=== PATIENT | male | born 1940 | race Caucasian/White ===

== ENCOUNTER 2018-09-21 23:33 | Observation (INO) ==
[2018-09-22] MEDS ORDERED: KETOROLAC 30 MG/1 ML VIAL IV STA (00:15)
[2018-09-22] MEDS ORDERED: PANTOPRAZOLE 40 MG VIAL IV STA (00:15)
[2018-09-22 00:24] LABS: Basophils % 0.5 % (0.0-0.8); Eosinophils # 0.1 10*3/uL (0.0-0.87); Eosinophils % 2.3 % (0.00-10.9); Hematocrit 36.9 VOL% (42.0-52.0); Immature Granulocytes % 0.2 %; Immature Granulocytes Absolute 0.01 #; Lymphocytes # 1.6 10*3/uL (1.4-4.0); Lymphocytes % 35.4 % (21.2-54.2); Mean Corpuscular HGB Conc 32.5 GM/DL (32-36); Mean Corpuscular Hemoglobin 30 PG (27-34); Mean Corpuscular Volume 91.1 FL (87-102); Mean Platelet Volume 9.6 FL (9.6-12.0); Monocytes # 0.4 10*3/uL (0.11-0.8); Monocytes % 8.2 % (1.7-12.7); Neutrophils # 2.3 10*3/uL (1.4-7.4); Neutrophils % 53.4 % (38.7-73.9); Platelet Count 128 T/CUMM (130-400); Red Blood Count 4.05 MC/CUMM (3.8-5.5); Red Cell Distribution Width 12.5 % (9.3-17.3); White Blood Count 4.4 T/CUMM (4-12)
[2018-09-22 00:34] LABS: Albumin 3.6 G/DL (3.4-5.0); Bilirubin,Total 0.5 MG/DL (0.2-1.0); Calcium 8.7 MG/DL (8.5-10.1); Osmolality,Calculated 280.4 MOS/KG (273-304); Potassium 3.9 MMOL/L (3.5-5.1)
[2018-09-22] MEDS ORDERED: MELOXICAM 7.5 MG TABLET PO PRN (10:13)
[2018-09-22] MEDS: amLODIPine 5 MG TABLET PO SCH (11:16)
[2018-09-22] MEDS: LOSARTAN 50 MG TABLET PO SCH (11:16)
[2018-09-22] MEDS: ENOXAPARIN 40 MG/0.4 ML SYRINGE SUBCUT SCH (11:16)
[2018-09-22] MEDS: ASPIRIN EC 81 MG TABLET PO SCH (11:16)
[2018-09-22] MEDS ORDERED: ALBUTEROL/IPRATROPIUM 3 ML NEB RESP TX PRN (13:00)
[2018-09-22] MEDS: TAMSULOSIN 0.4 MG CAPSULE PO SCH (20:28)
[2018-09-22] MEDS: ACETAMINOPHEN 500 MG TABLET PO SCH (20:29)
[2018-09-22] MEDS: OMEGA 3 ACID ETHYL ESTERS 1 GM CAPSULE PO SCH (20:29)
[2018-09-23 04:31] LABS: Basophils % 0.4 % (0.0-0.8); Eosinophils # 0.1 10*3/uL (0.0-0.87); Eosinophils % 2.5 % (0.00-10.9); Hematocrit 36.8 VOL% (42.0-52.0); Hemoglobin 11.9 GM/DL (14.0-18.0); Immature Granulocytes % 0.2 %; Immature Granulocytes Absolute 0.01 #; Lymphocytes # 1.6 10*3/uL (1.4-4.0); Mean Corpuscular HGB Conc 32.3 GM/DL (32-36); Mean Corpuscular Hemoglobin 30 PG (27-34); Mean Corpuscular Volume 91.1 FL (87-102); Mean Platelet Volume 9.6 FL (9.6-12.0); Monocytes # 0.4 10*3/uL (0.11-0.8); Monocytes % 7.8 % (1.7-12.7); Neutrophils # 2.7 10*3/uL (1.4-7.4); Neutrophils % 56.1 % (38.7-73.9); Platelet Count 139 T/CUMM (130-400); Red Blood Count 4.04 MC/CUMM (3.8-5.5); Red Cell Distribution Width 12.2 % (9.3-17.3); White Blood Count 4.9 T/CUMM (4-12)
[2018-09-23 04:57] LABS: Calcium 8.6 MG/DL (8.5-10.1); Osmolality,Calculated 286.1 MOS/KG (273-304); Potassium 4.1 MMOL/L (3.5-5.1)
[2018-09-23] MEDS ORDERED: PANTOPRAZOLE 40 MG TABLET PO SCH (09:00)
[2018-09-23] MEDS: ACETAMINOPHEN 500 MG TABLET PO SCH ×2 (14:05→21:50)
[2018-09-23] MEDS: POLYETHYLENE GLYCOL POWDER 17 GM PACK PO SCH (14:05)
[2018-09-23] MEDS: DOCUSATE SODIUM 100 MG CAPSULE PO SCH (14:05)
[2018-09-23] MEDS: OMEGA 3 ACID ETHYL ESTERS 1 GM CAPSULE PO SCH ×2 (14:05→21:45)
[2018-09-23] MEDS: amLODIPine 5 MG TABLET PO SCH (14:07)
[2018-09-23] MEDS: LOSARTAN 50 MG TABLET PO SCH (14:09)
[2018-09-23] MEDS: PANTOPRAZOLE 40 MG TABLET PO SCH ×2 (14:10→21:45)
[2018-09-23] MEDS: ASPIRIN EC 81 MG TABLET PO SCH (14:10)
[2018-09-23] MEDS: SIMVASTATIN 10 MG TABLET PO SCH (14:10)
[2018-09-23] MEDS: ENOXAPARIN 40 MG/0.4 ML SYRINGE SUBCUT SCH (14:11)
[2018-09-23] MEDS: LACTULOSE 20 GM/30 ML UDCUP PO SCH (14:14)
[2018-09-23] MEDS ORDERED: LOSARTAN 25 MG TABLET PO SCH (14:44)
[2018-09-23] MEDS ORDERED: FAMOTIDINE 20 MG TABLET PO SCH (21:00)
[2018-09-23] MEDS: TAMSULOSIN 0.4 MG CAPSULE PO SCH (21:45)
[2018-09-24] MEDS ORDERED: LIDOCAINE 2% 5 ML VIAL ONE (09:00)
[2018-09-24] MEDS ORDERED: PROPOFOL 200 MG/20 ML VIAL IV ONE (09:00)
[2018-09-24] MEDS ORDERED: SODIUM CHLORIDE 0.9% 1,000 ML IV SCH (12:00)
[2018-09-24] MEDS: PANTOPRAZOLE 40 MG TABLET PO SCH (15:05)
[2018-09-24] MEDS: ACETAMINOPHEN 500 MG TABLET PO SCH (15:06)
[2018-09-24] MEDS: amLODIPine 5 MG TABLET PO SCH (15:07)
[2018-09-24] MEDS: OMEGA 3 ACID ETHYL ESTERS 1 GM CAPSULE PO SCH (15:08)
[2018-09-24] MEDS: DOCUSATE SODIUM 100 MG CAPSULE PO SCH (15:08)
[2018-09-24] MEDS: SIMVASTATIN 10 MG TABLET PO SCH (15:08)
[2018-09-24] MEDS: ASPIRIN EC 81 MG TABLET PO SCH (15:08)
[2018-09-24] MEDS: LACTULOSE 20 GM/30 ML UDCUP PO SCH (15:08)
[2018-09-24] MEDS: POLYETHYLENE GLYCOL POWDER 17 GM PACK PO SCH (15:09)
[2018-09-24 16:08] VITALS: BP 141/53
== END 2018-09-24 16:25 | disposition home or self-care (01) ==
LOC: EDBD → EDUNIT# → N.EDINP 23:33 → N.ED 23:33 → N.TELEN 09-22 02:24
PROVIDERS: ADMIT Family Medicine; ATTEND Family Medicine

== ENCOUNTER 2018-09-30 23:51 | Inpatient (IN) ==
[2018-10-01] MEDS ORDERED: ASPIRIN 325 MG TABLET PO STA (01:39)
[2018-10-01 02:30] LABS: Basophils % 0.2 % (0.0-0.8); Eosinophils % 0.1 % (0.00-10.9); Hematocrit 41.8 VOL% (42.0-52.0); Hemoglobin 13.6 GM/DL (14.0-18.0); Immature Granulocytes % 0.3 %; Immature Granulocytes Absolute 0.03 #; Lymphocytes # 0.8 10*3/uL (1.4-4.0); Lymphocytes % 7.2 % (21.2-54.2); Mean Corpuscular HGB Conc 32.5 GM/DL (32-36); Mean Corpuscular Hemoglobin 30 PG (27-34); Mean Corpuscular Volume 91.7 FL (87-102); Mean Platelet Volume 9.6 FL (9.6-12.0); Monocytes # 0.3 10*3/uL (0.11-0.8); Monocytes % 3.1 % (1.7-12.7); Neutrophils # 9.7 10*3/uL (1.4-7.4); Neutrophils % 89.1 % (38.7-73.9); Platelet Count 164 T/CUMM (130-400); Red Blood Count 4.56 MC/CUMM (3.8-5.5); Red Cell Distribution Width 12.5 % (9.3-17.3); White Blood Count 10.9 T/CUMM (4-12)
[2018-10-01 02:47] LABS: Albumin 4.5 G/DL (3.4-5.0); Bilirubin,Total 0.6 MG/DL (0.2-1.0); Calcium 9.5 MG/DL (8.5-10.1); Osmolality,Calculated 281.5 MOS/KG (273-304); Potassium 4.2 MMOL/L (3.5-5.1); Total Protein 8.3 G/DL (6.4-8.3)
[2018-10-01] MEDS ORDERED: MORPHINE 4 MG/1 ML VIAL IV STA (03:41)
[2018-10-01] MEDS ORDERED: ONDANSETRON 4 MG/2 ML VIAL IV STA (03:41)
[2018-10-01] MEDS: DEXTROSE 5% LACTATED RINGERS 1,000 ML IV SCH ×2 (07:03→20:00)
[2018-10-01] MEDS ORDERED: LOSARTAN 50 MG TABLET PO SCH (09:00)
[2018-10-01] MEDS ORDERED: cloNIDine 0.1 MG/24 HR PATCH TRANSDERM SCH (09:00)
[2018-10-01] MEDS: PANTOPRAZOLE 40 MG VIAL IV SCH (09:20)
[2018-10-01] MEDS ORDERED: MORPHINE 4 MG/1 ML VIAL IV PRN (11:41)
[2018-10-01] MEDS: ONDANSETRON 4 MG/2 ML VIAL IV PRN (11:53)
[2018-10-01] MEDS: MORPHINE 4 MG/1 ML VIAL IV PRN (11:54)
[2018-10-01] MEDS ORDERED: cefOXitin 2,000 MG in SYRINGE 1 EACH IV ONE (13:00)
[2018-10-01 15:17] LABS: Amorphous Crystals,Urine Occasional /HPF (Few); Apearance,Urine CLOUDY (Clear); Bilirubin,Urine Negative (Negative); Blood, Urine Negative (Negative); Glucose,Urine (UA) Negative (Negative); Ketones,Urine Negative (Negative); Mucus,Urine Occasional /LPF (Occasional); Nitrite,Urine Negative (Negative); Protein,Urine Negative; RBC,Urine 3 /HPF (0-4); Urine Color Yellow (Yellow); Urine Specific Gravity 1.033 (1.001-1.035); Urine Urobilinogen < 2.0 EU/DL (0.2-1.0)
[2018-10-01] MEDS ORDERED: EPINEPHrine 1 MG/ML VIAL ONE (16:40)
[2018-10-01] MEDS ORDERED: ONDANSETRON 4 MG/2 ML VIAL ONE (19:11)
[2018-10-01] MEDS ORDERED: HYDROmorphone 2 MG/1 ML VIAL ONE (19:11)
[2018-10-01] MEDS ORDERED: NEOSTIGMINE 10 MG/10 ML VIAL ONE (19:13)
[2018-10-01] MEDS ORDERED: SUCCINYLCHOLINE 200 MG/10 ML VIAL ONE (19:13)
[2018-10-01] MEDS ORDERED: LACTATED RINGERS 2,000 ML IV ONE (19:13)
[2018-10-01] MEDS ORDERED: HYDROmorphone 2 MG/1 ML VIAL IV PRN (19:13)
[2018-10-01] MEDS ORDERED: GLYCOPYRROLATE 0.4 MG/2 ML VIAL ONE (19:13)
[2018-10-01] MEDS ORDERED: ROCURONIUM 100 MG/10 ML VIAL IV ONE (19:13)
[2018-10-01] MEDS ORDERED: fentaNYL 100 MCG/2 ML VIAL ONE (19:13)
[2018-10-01] MEDS ORDERED: ETOMIDATE 40 MG/20 ML VIAL IV ONE (19:13)
[2018-10-01] MEDS ORDERED: SEVOFLURANE 1 UNIT/15 MINUTE INH ONE (19:13)
[2018-10-01] MEDS ORDERED: ONDANSETRON 4 MG/2 ML VIAL IV PRN (19:13)
[2018-10-01] MEDS ORDERED: PHENYLEPHRINE 1 MG/10 ML SYRINGE IV ONE (19:13)
[2018-10-01 19:36] LABS: ABG HCO3 22.9 MMOL/L (20-26); ABG Oxygen Saturation 92.4 % (95-100); ABG PH 7.287 (7.35-7.45); ABG PO2 74.9 MM HG (80-95); ABG TCO2 24.4 MMOL/L (23-27)
[2018-10-01] MEDS ORDERED: PHENYLEPHRINE DRIP 40 MG/250 ML PREMIX IV ONE (19:43)
[2018-10-01] MEDS: PHENYLEPHRINE DRIP 40 MG/250 ML PREMIX IV PRN (19:45)
[2018-10-01] MEDS ORDERED: PROPOFOL 1,000 MG/100 ML BOTTLE IV ONE (20:20)
[2018-10-01] MEDS: PROPOFOL 1,000 MG/100 ML BOTTLE IV SCH (20:30)
[2018-10-01 21:29] LABS: ABG Base Excess -4.7 MMOL/L (-2.5-2.5); ABG HCO3 22.2 MMOL/L (20-26); ABG Oxygen Saturation 99.4 % (95-100); ABG PCO2 47.9 MM HG (35-48); ABG PH 7.283 (7.35-7.45); ABG PO2 348.8 MM HG (80-95); ABG TCO2 23.6 MMOL/L (23-27)
[2018-10-02] MEDS: PHENYLEPHRINE DRIP 40 MG/250 ML PREMIX IV PRN ×3 (00:12→08:05)
[2018-10-02] MEDS: DEXTROSE 5% LACTATED RINGERS 1,000 ML IV SCH ×5 (01:53→23:01)
[2018-10-02] MEDS ORDERED: SODIUM CHLORIDE 0.9% 1,000 ML IV ONE ×2 (01:55→03:19)
[2018-10-02] MEDS ORDERED: ALBUMIN 25% 25 GM in PREMIX 1 EACH IV ONE (03:14)
[2018-10-02] MEDS ORDERED: LACTATED RINGERS 1,000 ML IV SCH (03:30)
[2018-10-02 04:03] LABS: ABG Base Excess -8.1 MMOL/L (-2.5-2.5); ABG HCO3 17.9 MMOL/L (20-26); ABG Oxygen Saturation 99.5 % (95-100); ABG PCO2 39.2 MM HG (35-48); ABG PH 7.276 (7.35-7.45); ABG TCO2 16.5 MMOL/L (23-27)
[2018-10-02 04:11] LABS: Basophils % 0.1 % (0.0-0.8); Eosinophils % 0.1 % (0.00-10.9); Hematocrit 34.6 VOL% (42.0-52.0); Hemoglobin 10.8 GM/DL (14.0-18.0); Immature Granulocytes % 0.4 %; Immature Granulocytes Absolute 0.03 #; Lymphocytes # 0.6 10*3/uL (1.4-4.0); Lymphocytes % 8.3 % (21.2-54.2); Mean Corpuscular HGB Conc 31.2 GM/DL (32-36); Mean Corpuscular Hemoglobin 30 PG (27-34); Mean Corpuscular Volume 95.1 FL (87-102); Mean Platelet Volume 10.1 FL (9.6-12.0); Monocytes # 0.6 10*3/uL (0.11-0.8); Monocytes % 8.3 % (1.7-12.7); Neutrophils # 5.8 10*3/uL (1.4-7.4); Neutrophils % 82.8 % (38.7-73.9); Platelet Count 211 T/CUMM (130-400); Red Blood Count 3.64 MC/CUMM (3.8-5.5); Red Cell Distribution Width 12.8 % (9.3-17.3)
[2018-10-02 04:21] LABS: Calcium 7.7 MG/DL (8.5-10.1); Osmolality,Calculated 286.3 MOS/KG (273-304); Potassium 3.5 MMOL/L (3.5-5.1)
[2018-10-02 04:44] LABS: Band Neutrophils 16 % (0-10); Lymphocytes 13 % (20-55); Metamyelocytes 10 %; Myelocytes 1 %; Segmented Neutrophils 53 % (50-85)
[2018-10-02 05:24] LABS: Platelet Estimate Normal
[2018-10-02 05:25] LABS: Total Cells Counted 100
[2018-10-02] MEDS: PROPOFOL 1,000 MG/100 ML BOTTLE IV SCH ×5 (05:51→23:44)
[2018-10-02] MEDS ORDERED: cefOXitin 1,000 MG in SODIUM CHLORIDE 0.9% 100 ML IV ONE (06:30)
[2018-10-02] MEDS ORDERED: cefOXitin 1,000 MG in SYRINGE 1 EACH IV ONE (07:30)
[2018-10-02 08:07] LABS: CKMB % 1.4 %; Troponin I 0.552 NG/ML (0.00-0.045)
[2018-10-02] MEDS: PANTOPRAZOLE 40 MG VIAL IV SCH (08:50)
[2018-10-02] MEDS: PHENYLEPHRINE INJ 80 MG in SODIUM CHLORIDE 0.9% 242 ML IV PRN ×2 (10:20→16:00)
[2018-10-02 12:01] LABS: Hematocrit 31.2 VOL% (42.0-52.0); Hemoglobin 9.9 GM/DL (14.0-18.0)
[2018-10-02] MEDS ORDERED: LACTATED RINGERS 1,000 ML IV ONE (12:30)
[2018-10-02] MEDS ORDERED: METOPROLOL TARTRATE 5 MG/5 ML VIAL IV ONE ×2 (12:42→12:44)
[2018-10-02] MEDS ORDERED: ASPIRIN 300 MG SUPP RECTAL ONE (12:43)
[2018-10-02] MEDS ORDERED: NOREPINEPHRINE 4 MG/4 ML VIAL IV ONE (12:55)
[2018-10-02] MEDS: NOREPINEPHRINE 16 MG in SODIUM CHLORIDE 0.9% 234 ML IV PRN (13:00)
[2018-10-02] MEDS: ALBUTEROL/IPRATROPIUM 3 ML NEB RESP TX SCH ×3 (13:02→19:50)
[2018-10-02] MEDS ORDERED: SODIUM CHLORIDE 0.9% 500 ML IV ONE ×2 (17:27→22:00)
[2018-10-02] MEDS ORDERED: DIGOXIN 0.5 MG/2 ML AMP IV ONE (19:10)
[2018-10-02] MEDS ORDERED: ACETAMINOPHEN 325 MG SUPP RECTAL PRN ×2 (19:51→19:55)
[2018-10-02] MEDS ORDERED: AMIODARONE 450 MG/9 ML VIAL IV ONE (20:06)
[2018-10-02] MEDS ORDERED: AMIODARONE 150 MG/3 ML VIAL ONE (20:06)
[2018-10-02] MEDS ORDERED: AMIODARONE INJ 150 MG in DEXTROSE 5% 100 ML IV ONE (20:08)
[2018-10-02] MEDS ORDERED: AMIODARONE INJ 450 MG in DEXTROSE 5% 241 ML IV SCH (20:30)
[2018-10-03] MEDS: ALBUTEROL/IPRATROPIUM 3 ML NEB RESP TX SCH ×4 (01:29→19:00)
[2018-10-03] MEDS: PROPOFOL 1,000 MG/100 ML BOTTLE IV SCH ×3 (02:53→20:33)
[2018-10-03] MEDS ORDERED: AMIODARONE 450 MG/9 ML VIAL IV ONE (03:19)
[2018-10-03] MEDS: AMIODARONE INJ 450 MG in DEXTROSE 5% 241 ML IV SCH ×2 (03:31→18:40)
[2018-10-03] MEDS: PHENYLEPHRINE INJ 80 MG in SODIUM CHLORIDE 0.9% 242 ML IV PRN (03:34)
[2018-10-03 03:50] LABS: Basophils # 0.1 10*3/uL (0.0-0.2); Basophils % 0.4 % (0.0-0.8); Hematocrit 32.1 VOL% (42.0-52.0); Hemoglobin 9.9 GM/DL (14.0-18.0); Immature Granulocytes % 5.6 %; Immature Granulocytes Absolute 1.27 #; Lymphocytes # 1.6 10*3/uL (1.4-4.0); Lymphocytes % 6.9 % (21.2-54.2); Mean Corpuscular HGB Conc 30.8 GM/DL (32-36); Mean Corpuscular Hemoglobin 30 PG (27-34); Mean Corpuscular Volume 96.1 FL (87-102); Mean Platelet Volume 10.7 FL (9.6-12.0); Monocytes # 1.8 10*3/uL (0.11-0.8); Monocytes % 7.8 % (1.7-12.7); Neutrophils % 79.3 % (38.7-73.9); Platelet Count 144 T/CUMM (130-400); Red Blood Count 3.34 MC/CUMM (3.8-5.5); Red Cell Distribution Width 13.3 % (9.3-17.3); White Blood Count 22.7 T/CUMM (4-12)
[2018-10-03 04:05] LABS: Calcium 7.1 MG/DL (8.5-10.1); Osmolality,Calculated 287.5 MOS/KG (273-304); Potassium 5.3 MMOL/L (3.5-5.1)
[2018-10-03 04:51] LABS: Band Neutrophils 37 % (0-10); Lymphocytes 30 % (20-55); Metamyelocytes 2 %; Platelet Estimate Adequate; Polychromasia Few; Segmented Neutrophils 26 % (50-85); Total Cells Counted 100
[2018-10-03] MEDS: DEXTROSE 5% LACTATED RINGERS 1,000 ML IV SCH ×2 (06:40→10:00)
[2018-10-03 06:52] LABS: ABG Base Excess -8.5 MMOL/L (-2.5-2.5); ABG HCO3 17.6 MMOL/L (20-26); ABG Oxygen Saturation 99.3 % (95-100); ABG PH 7.315 (7.35-7.45); ABG TCO2 15.3 MMOL/L (23-27); Allen Test Positive; Pt O2 Delivery Device Ventilator
[2018-10-03] MEDS: MEROPENEM 1,000 MG in SODIUM CHLORIDE 0.9% 100 ML IV SCH ×2 (08:10→20:33)
[2018-10-03] MEDS: HYDROCORTISONE 100 MG VIAL IV SCH ×2 (09:25→17:30)
[2018-10-03] MEDS: PANTOPRAZOLE 40 MG VIAL IV SCH (09:25)
[2018-10-03] MEDS: ASPIRIN 300 MG SUPP RECTAL SCH (09:45)
[2018-10-03] MEDS: DEXTROSE 5% NACL 0.9% 1,000 ML IV SCH ×2 (12:10→20:32)
[2018-10-03] MEDS: ONDANSETRON 4 MG/2 ML VIAL IV PRN (13:20)
[2018-10-03] MEDS ORDERED: SODIUM HYPOCHLORITE 0.25% IRRIG 473 ML BOTTLE ONE (15:06)
[2018-10-03] MEDS: SODIUM HYPOCHLORITE 0.25% IRRIG 473 ML BOTTLE TOP SCH (15:30)
[2018-10-03] MEDS: CHLORHEXIDINE 4% SOLN 118 ML BOTTLE TOP SCH (15:30)
[2018-10-03] MEDS: NOREPINEPHRINE 16 MG in SODIUM CHLORIDE 0.9% 234 ML IV PRN (20:34)
[2018-10-04] MEDS: ALBUTEROL/IPRATROPIUM 3 ML NEB RESP TX SCH ×4 (01:15→19:52)
[2018-10-04] MEDS: HYDROCORTISONE 100 MG VIAL IV SCH ×3 (01:54→16:45)
[2018-10-04 04:25] LABS: Hematocrit 30.8 VOL% (42.0-52.0); Hemoglobin 9.6 GM/DL (14.0-18.0); Immature Granulocytes % 1.3 %; Immature Granulocytes Absolute 0.34 #; Lymphocytes # 0.6 10*3/uL (1.4-4.0); Lymphocytes % 2.1 % (21.2-54.2); Mean Corpuscular HGB Conc 31.2 GM/DL (32-36); Mean Corpuscular Hemoglobin 30 PG (27-34); Mean Corpuscular Volume 96.6 FL (87-102); Monocytes # 1.2 10*3/uL (0.11-0.8); Monocytes % 4.5 % (1.7-12.7); Neutrophils % 92.1 % (38.7-73.9); Platelet Count 96 T/CUMM (130-400); Red Blood Count 3.19 MC/CUMM (3.8-5.5); Red Cell Distribution Width 13.8 % (9.3-17.3); White Blood Count 27.2 T/CUMM (4-12)
[2018-10-04 04:36] LABS: Calcium 7.2 MG/DL (8.5-10.1)
[2018-10-04 04:41] LABS: Potassium 6.8 MMOL/L (3.5-5.1)
[2018-10-04] MEDS ORDERED: SODIUM POLYSTYRENE SULFATE 15 GM/60 ML BOTTLE PO STA (04:53)
[2018-10-04] MEDS ORDERED: CALCIUM GLUCONATE 1,000 MG in SODIUM CHLORIDE 0.9% 100 ML IV ONE ×2 (05:34→15:55)
[2018-10-04] MEDS ORDERED: SODIUM BICARBONATE 50 MEQ/50 ML SYRINGE IV ONE ×2 (05:34→15:55)
[2018-10-04] MEDS ORDERED: CALCIUM GLUCONATE 1,000 MG/10 ML VIAL IV ONE ×2 (05:42→13:30)
[2018-10-04] MEDS ORDERED: SODIUM CHLORIDE 0.9% 100 ML IV ONE (05:42)
[2018-10-04] MEDS: DEXTROSE 5% NACL 0.9% 1,000 ML IV SCH ×2 (05:45→14:22)
[2018-10-04 05:47] LABS: Band Neutrophils 16 % (0-10); Lymphocytes 4 % (20-55); Segmented Neutrophils 74 % (50-85); Total Cells Counted 100
[2018-10-04 05:48] LABS: Anisocytosis 1+; Ovalocytes 1+; Platelet Estimate Adequate
[2018-10-04 07:42] LABS: ABG Base Excess -12.6 MMOL/L (-2.5-2.5); ABG HCO3 14.6 MMOL/L (20-26); ABG Oxygen Saturation 98.8 % (95-100); ABG PCO2 30.1 MM HG (35-48); ABG PH 7.259 (7.35-7.45); ABG TCO2 12.4 MMOL/L (23-27); Glucose Heart Surgery 120 MG/DL (74-106); Hematocrit Heart Surgery 31.4 PERCENT (42-52); Hemoglobin Heart Surgery 10.2 G/DL (14.0-18.0)
[2018-10-04 07:49] LABS: Potassium Heart/CVR 6.3 MMOL/L (3.5-5.1)
[2018-10-04] MEDS ORDERED: GLUCAGON 1 MG VIAL IM PRN (10:07)
[2018-10-04] MEDS ORDERED: DEXTROSE 50% 25 GM/50 ML VIAL IV PRN (10:07)
[2018-10-04] MEDS: MEROPENEM 1,000 MG in SODIUM CHLORIDE 0.9% 100 ML IV SCH ×2 (11:08→20:38)
[2018-10-04] MEDS: AMIODARONE INJ 450 MG in DEXTROSE 5% 241 ML IV SCH (11:09)
[2018-10-04] MEDS: PANTOPRAZOLE 40 MG VIAL IV SCH (11:09)
[2018-10-04] MEDS: SODIUM HYPOCHLORITE 0.25% IRRIG 473 ML BOTTLE TOP SCH (11:11)
[2018-10-04] MEDS: CHLORHEXIDINE 4% SOLN 118 ML BOTTLE TOP SCH (11:12)
[2018-10-04 11:56] LABS: Calcium 7.2 MG/DL (8.5-10.1)
[2018-10-04 14:12] LABS: Hepatitis A Ab IgM Result Negative (Negative); Hepatitis B Core IgM Quant 0.12 Index; Hepatitis B Core IgM Result Negative (Negative); Hepatitis B Surface Ag Quant < 0.10 Index; Hepatitis B Surface Ag Result Negative (Negative); Hepatitis C Virus Ab Quant 0.05 Index; Hepatitis C Virus Ab Result Negative (Negative)
[2018-10-04] MEDS: ASPIRIN 300 MG SUPP RECTAL SCH (14:21)
[2018-10-04] MEDS ORDERED: ATROPINE 1 MG/10 ML SYRINGE IV ONE ×2 (15:55→16:24)
[2018-10-04] MEDS ORDERED: DOPamine 800 MG/250 ML PREMIX IV PRN (16:50)
[2018-10-04] MEDS ORDERED: DEXTROSE 10% 1,000 ML IV PRN (17:00)
[2018-10-04] MEDS ORDERED: [UNRECOGNIZED DRUG - OTHER] IV SCH (17:00)
[2018-10-04] MEDS ORDERED: TRACE ELEMENTS IV SCH (17:00)
[2018-10-04] MEDS ORDERED: MULTIVITAMIN IV SCH (17:00)
[2018-10-04] MEDS ORDERED: AMINO ACIDS IV SCH (17:00)
[2018-10-04] MEDS: PHENYLEPHRINE INJ 80 MG in SODIUM CHLORIDE 0.9% 242 ML IV PRN (17:59)
[2018-10-04] MEDS ORDERED: DEXTROSE 50% 25 GM/50 ML SYRINGE IV ONE (18:03)
[2018-10-04] MEDS: INSULIN REGULAR 100 UNIT/ML SUBCUT SCH ×2 (18:12→23:25)
[2018-10-04] MEDS: PROPOFOL 1,000 MG/100 ML BOTTLE IV SCH (20:29)
[2018-10-05] MEDS: ALBUTEROL/IPRATROPIUM 3 ML NEB RESP TX SCH ×4 (00:28→19:57)
[2018-10-05] MEDS: AMIODARONE INJ 450 MG in DEXTROSE 5% 241 ML IV SCH (01:33)
[2018-10-05] MEDS: DEXTROSE 5% NACL 0.9% 1,000 ML IV SCH ×3 (01:40→17:51)
[2018-10-05] MEDS: HYDROCORTISONE 100 MG VIAL IV SCH ×3 (01:41→17:32)
[2018-10-05 03:38] LABS: ABG Base Excess -10.9 MMOL/L (-2.5-2.5); ABG HCO3 15.7 MMOL/L (20-26); ABG Oxygen Saturation 98.3 % (95-100); ABG PCO2 38.8 MM HG (35-48); ABG PH 7.225 (7.35-7.45); ABG TCO2 15.1 MMOL/L (23-27)
[2018-10-05 03:58] LABS: Basophils # 0.1 10*3/uL (0.0-0.2); Basophils % 0.6 % (0.0-0.8); Hemoglobin 8.5 GM/DL (14.0-18.0); Immature Granulocytes % 9.7 %; Immature Granulocytes Absolute 0.95 #; Lymphocytes # 0.3 10*3/uL (1.4-4.0); Lymphocytes % 2.5 % (21.2-54.2); Mean Corpuscular HGB Conc 31.5 GM/DL (32-36); Mean Corpuscular Hemoglobin 30 PG (27-34); Mean Corpuscular Volume 94.4 FL (87-102); Mean Platelet Volume 11.5 FL (9.6-12.0); Monocytes # 0.5 10*3/uL (0.11-0.8); Monocytes % 4.8 % (1.7-12.7); NRBC # 0.15 10*3/uL; Neutrophils # 8.1 10*3/uL (1.4-7.4); Neutrophils % 82.4 % (38.7-73.9); Red Blood Count 2.86 MC/CUMM (3.8-5.5); Red Cell Distribution Width 13.6 % (9.3-17.3); White Blood Count 9.8 T/CUMM (4-12)
[2018-10-05 04:04] LABS: Calcium 6.8 MG/DL (8.5-10.1); Osmolality,Calculated 300.4 MOS/KG (273-304); Potassium 4.7 MMOL/L (3.5-5.1); Prealbumin 6.1 MG/DL (20-40)
[2018-10-05 04:06] LABS: Platelet Count 43 T/CUMM (130-400)
[2018-10-05 04:51] LABS: Lymphocytes 13 % (20-55); Nucleated Red Blood Cells 5 (0-5); Platelet Estimate Decreased; Segmented Neutrophils 71 % (50-85); Total Cells Counted 100
[2018-10-05] MEDS: NOREPINEPHRINE 16 MG in SODIUM CHLORIDE 0.9% 234 ML IV PRN ×2 (05:00→20:00)
[2018-10-05] MEDS: INSULIN REGULAR 100 UNIT/ML SUBCUT SCH ×4 (06:04→23:30)
[2018-10-05] MEDS: MEROPENEM 1,000 MG in SODIUM CHLORIDE 0.9% 100 ML IV SCH ×2 (08:01→20:01)
[2018-10-05] MEDS: PANTOPRAZOLE 40 MG VIAL IV SCH (08:01)
[2018-10-05] MEDS ORDERED: ALBUMIN 25% 25 GM in PREMIX 1 EACH IV ONE ×2 (09:44→10:46)
[2018-10-05] MEDS: SODIUM HYPOCHLORITE 0.25% IRRIG 473 ML BOTTLE TOP SCH (11:56)
[2018-10-05] MEDS: ASPIRIN 300 MG SUPP RECTAL SCH (11:56)
[2018-10-05] MEDS: CHLORHEXIDINE 4% SOLN 118 ML BOTTLE TOP SCH (11:57)
[2018-10-05] MEDS: [UNRECOGNIZED DRUG - OTHER] IV SCH (18:41)
[2018-10-05] MEDS: MULTIVITAMIN IV SCH (18:41)
[2018-10-05] MEDS: AMINO ACIDS IV SCH (18:41)
[2018-10-05] MEDS: TRACE ELEMENTS IV SCH (18:41)
[2018-10-06] MEDS: ALBUTEROL/IPRATROPIUM 3 ML NEB RESP TX SCH ×4 (00:23→21:05)
[2018-10-06] MEDS: HYDROCORTISONE 100 MG VIAL IV SCH ×3 (00:46→17:18)
[2018-10-06] MEDS: DEXTROSE 5% NACL 0.9% 1,000 ML IV SCH ×4 (01:50→18:34)
[2018-10-06 04:05] LABS: ABG Base Excess -10.8 MMOL/L (-2.5-2.5); ABG HCO3 15.8 MMOL/L (20-26); ABG Oxygen Saturation 99.3 % (95-100); ABG PCO2 37.6 MM HG (35-48); ABG PO2 333.2 MM HG (80-95); ABG TCO2 16.9 MMOL/L (23-27)
[2018-10-06] MEDS: NOREPINEPHRINE 16 MG in SODIUM CHLORIDE 0.9% 234 ML IV PRN ×3 (04:16→18:35)
[2018-10-06 05:26] LABS: Basophils # 0.2 10*3/uL (0.0-0.2); Basophils % 0.8 % (0.0-0.8); Eosinophils # 5.5 10*3/uL (0.0-0.87); Eosinophils % 23.6 % (0.00-10.9); Hematocrit 25.5 VOL% (42.0-52.0); Hemoglobin 7.9 GM/DL (14.0-18.0); Immature Granulocytes Absolute 0.47 #; Lymphocytes # 0.6 10*3/uL (1.4-4.0); Lymphocytes % 2.4 % (21.2-54.2); Mean Corpuscular Hemoglobin 30 PG (27-34); Mean Corpuscular Volume 96.2 FL (87-102); Mean Platelet Volume 12.7 FL (9.6-12.0); Monocytes # 1.6 10*3/uL (0.11-0.8); Monocytes % 6.9 % (1.7-12.7); NRBC # 0.62 10*3/uL; Neutrophils # 14.8 10*3/uL (1.4-7.4); Neutrophils % 64.3 % (38.7-73.9); Red Blood Count 2.65 MC/CUMM (3.8-5.5); White Blood Count 23.1 T/CUMM (4-12)
[2018-10-06 05:29] LABS: Platelet Count 25 T/CUMM (130-400)
[2018-10-06 05:51] LABS: Calcium 7.1 MG/DL (8.5-10.1); Osmolality,Calculated 296.8 MOS/KG (273-304)
[2018-10-06] MEDS: INSULIN REGULAR 100 UNIT/ML SUBCUT SCH ×4 (06:25→23:37)
[2018-10-06 06:47] LABS: Anisocytosis 1+; Band Neutrophils 10 % (0-10); Hypochromasia 1+; Lymphocytes 2 % (20-55); Myelocytes 3 %; Nucleated Red Blood Cells 7 (0-5); Platelet Estimate Decreased; Segmented Neutrophils 82 % (50-85); Total Cells Counted 100
[2018-10-06] MEDS: PANTOPRAZOLE 40 MG VIAL IV SCH (08:04)
[2018-10-06] MEDS: MEROPENEM 1,000 MG in SODIUM CHLORIDE 0.9% 100 ML IV SCH ×2 (08:05→19:37)
[2018-10-06] MEDS: PHENYLEPHRINE INJ 80 MG in SODIUM CHLORIDE 0.9% 242 ML IV PRN (12:11)
[2018-10-06] MEDS: CHLORHEXIDINE 4% SOLN 118 ML BOTTLE TOP SCH (13:02)
[2018-10-06] MEDS: SODIUM HYPOCHLORITE 0.25% IRRIG 473 ML BOTTLE TOP SCH (13:03)
[2018-10-06] MEDS: [UNRECOGNIZED DRUG - OTHER] IV SCH (13:36)
[2018-10-06] MEDS: AMINO ACIDS IV SCH (13:36)
[2018-10-06] MEDS: TRACE ELEMENTS IV SCH (13:36)
[2018-10-06] MEDS: MULTIVITAMIN IV SCH (13:36)
[2018-10-06] MEDS ORDERED: SODIUM BICARBONATE 50 MEQ/50 ML SYRINGE IV ONE (18:49)
[2018-10-06] MEDS ORDERED: CALCIUM GLUCONATE 1,000 MG in SODIUM CHLORIDE 0.9% 100 ML IV ONE (18:49)
[2018-10-06] MEDS: SODIUM BICARB INJ 50 MEQ in SODIUM CHLORIDE 0.45% 1,000 ML IV SCH (20:18)
[2018-10-07] MEDS: NOREPINEPHRINE 16 MG in SODIUM CHLORIDE 0.9% 234 ML IV PRN ×2 (00:40→06:22)
[2018-10-07] MEDS: HYDROCORTISONE 100 MG VIAL IV SCH ×3 (00:41→17:17)
[2018-10-07] MEDS: ALBUTEROL/IPRATROPIUM 3 ML NEB RESP TX SCH ×2 (02:29→07:52)
[2018-10-07 03:59] LABS: ABG Base Excess -9.7 MMOL/L (-2.5-2.5); ABG HCO3 16.7 MMOL/L (20-26); ABG Oxygen Saturation 99.6 % (95-100); ABG PCO2 36.6 MM HG (35-48); ABG PH 7.265 (7.35-7.45); ABG TCO2 15.4 MMOL/L (23-27)
[2018-10-07 04:15] LABS: Basophils # 0.1 10*3/uL (0.0-0.2); Basophils % 0.3 % (0.0-0.8); Eosinophils # 1.7 10*3/uL (0.0-0.87); Eosinophils % 6.5 % (0.00-10.9); Hematocrit 24.2 VOL% (42.0-52.0); Hemoglobin 7.6 GM/DL (14.0-18.0); Immature Granulocytes % 2.3 %; Immature Granulocytes Absolute 0.58 #; Mean Corpuscular HGB Conc 31.4 GM/DL (32-36); Mean Corpuscular Hemoglobin 30 PG (27-34); Mean Corpuscular Volume 94.9 FL (87-102); Mean Platelet Volume 12.3 FL (9.6-12.0); Monocytes # 2.7 10*3/uL (0.11-0.8); Monocytes % 10.6 % (1.7-12.7); NRBC # 0.68 10*3/uL; Neutrophils # 19.5 10*3/uL (1.4-7.4); Neutrophils % 76.3 % (38.7-73.9); Red Blood Count 2.55 MC/CUMM (3.8-5.5); Red Cell Distribution Width 14.4 % (9.3-17.3); White Blood Count 25.5 T/CUMM (4-12)
[2018-10-07 04:17] LABS: Platelet Count 21 T/CUMM (130-400)
[2018-10-07 04:34] LABS: Calcium 7.2 MG/DL (8.5-10.1); Osmolality,Calculated 306.7 MOS/KG (273-304); Potassium 5.9 MMOL/L (3.5-5.1); Prealbumin 4.6 MG/DL (20-40)
[2018-10-07 04:55] LABS: Band Neutrophils 1 % (0-10); Eosinophils 1 % (0-10); Lymphocytes 7 % (20-55); Metamyelocytes 1 %; Nucleated Red Blood Cells 2 (0-5); Segmented Neutrophils 81 % (50-85); Total Cells Counted 100
[2018-10-07 04:56] LABS: Platelet Estimate Decreased
[2018-10-07 04:57] LABS: Burr Cells Few; Ovalocytes 1+
[2018-10-07] MEDS: INSULIN REGULAR 100 UNIT/ML SUBCUT SCH (05:42)
[2018-10-07] MEDS ORDERED: HEPARIN 10,000 UNIT/10 ML VIAL IV SCH (07:00)
[2018-10-07] MEDS: SODIUM BICARB INJ 50 MEQ in SODIUM CHLORIDE 0.45% 1,000 ML IV SCH ×2 (07:00→17:13)
[2018-10-07] MEDS: SODIUM HYPOCHLORITE 0.25% IRRIG 473 ML BOTTLE TOP SCH (08:30)
[2018-10-07] MEDS: CHLORHEXIDINE 4% SOLN 118 ML BOTTLE TOP SCH (08:30)
[2018-10-07] MEDS: MEROPENEM 1,000 MG in SODIUM CHLORIDE 0.9% 100 ML IV SCH (09:00)
[2018-10-07] MEDS: PANTOPRAZOLE 40 MG VIAL IV SCH (09:00)
[2018-10-07] MEDS: MORPHINE 4 MG/1 ML VIAL IV PRN (13:40)
[2018-10-07] MEDS: TRACE ELEMENTS IV SCH (14:43)
[2018-10-07] MEDS: [UNRECOGNIZED DRUG - OTHER] IV SCH (14:43)
[2018-10-07] MEDS: AMINO ACIDS IV SCH (14:43)
[2018-10-07] MEDS: MULTIVITAMIN IV SCH (14:43)
[2018-10-07 16:24] VITALS: BP 0/0
== END 2018-10-07 14:30 | disposition expired | DRG 329 ==
LOC: N.ED 23:51 → N.EDINP 10-01 06:00 → N.4E 10-01 06:36 → N.ICU 10-01 17:46
PROVIDERS: ADMIT Family Medicine; ATTEND Family Medicine